=== PATIENT | female | born 2000 | race Caucasian/White ===

== ENCOUNTER → 2022-05-18 13:51 | Outpatient (CLI) | payer OTHER, MEDICAID, SELFPAY ==
--- NOTE | 2022-05-18 | DI.US.S_ITS ---
PROCEDURE: US OB >= 14 WEEKS FETUS INDICATIONS: ANATOMY SCAN OUTSIDE/PRIOR DATING DATA: Last menstrual period (LMP): 12/22/2021. LMP-based estimated date of delivery (LESLIE): 09/28/2022. First dating scan (date and location): 05/18/2022. Estimated date of delivery (LESLIE) from first dating scan: 09/27/2022. TECHNIQUE: Real-time scanning was performed of the fetus, with image documentation and biometric measurements. Endovaginal scanning: Not performed. COMPARISON: None. FINDINGS: General: A single living intrauterine gestation is present. Presentation: Variable, breech at the end of the exam. Placenta: Placental position is fundal , without previa. Amniotic fluid index: 11.1 cm, normal range is 5-24 cm. Single deepest vertical pocket is 3.6 cm. heart rate: 155 beats per minute. Maternal cervical canal: 3.9 cm long. Normal lower limit is 2.5 cm. biometrics: Biparietal diameter: 5.0 cm, 21 weeks 1 day Head circumference: 18.8 cm, 21 weeks 1 day Abdominal circumference: 16.0 cm, 21 weeks 1 day Femur length: 3.5 cm, 21 weeks 1 day Clinically estimated gestational age: 21 weeks 0 days Composite gestational age from present scan: 21 weeks 1 day Estimated weight and percentile: 403 g, 53rd percentile Anatomic survey: Neuro: Ventricles are non-dilated at less than 10 mm. Cisterna magna is normal at 3-11 mm. Cerebellum is normal in size and morphology. Nuchal skin fold: Normal at less than 6 mm between 14-21 weeks gestational age. Face: Nose and lips, facial profile are normal. Spine: No evidence for spina bifida. Heart: 4-chambered heart is present, with normal ventricular outflow tracts. Diaphragm: Diaphragm is intact. Stomach: Left-sided stomach is present. Kidneys: No hydronephrosis. Normal is less than 5 mm in 2nd trimester, less than 7 mm in 3rd trimester. Cord: 3-vessel cord has orthotopic insertion. Bladder: Normal in size. Extremities: All 4 extremities identified. IMPRESSION: 1. Single living intrauterine with gestational age of 21 weeks 0 days by LMP. 2. Normal 2nd trimester anatomy survey. No anomalies detected at this time. We strive to produce accurate, complete, and clear reports of imaging services. To assist us in improving patient care, this report was composed using standard report templates and voice recognition software. Therefore, it may contain abnormal punctuation, insertions and/or omissions. Occasional wrong-word or sound-alike substitutions may occur. Though we review the report and make efforts to correct it, we do recommend that the report be read carefully in proper context to recognize any text inaccuracies. Dictated by: Emanuel Rivas M.D. on 05/19/2022 at 8:32 Approved by: Emanuel Rivas M.D. on 05/19/2022 at 8:45
== END ==
PROVIDERS: Referring Provider Nurse Practitioner Obstetrics & Gynecology; Visit Provider Nurse Practitioner Obstetrics & Gynecology
DX: Z34.92 Encounter for supervision of normal pregnancy, unspecified, second trimester (principal); Z3A.20 20 weeks gestation of pregnancy
CPT/HCPCS: 76811

== ENCOUNTER → 2022-09-11 06:41 | Outpatient (CLI) | payer OTHER, MEDICAID, SELFPAY ==
--- NOTE | 2022-09-11 06:44 | DI.US.S_ITS ---
PROCEDURE: US OB LIMITED INDICATIONS: GROWTH SCAN OUTSIDE/PRIOR DATING DATA: Last menstrual period (LMP): 12/22/2021. LMP-based estimated date of delivery (LESLIE): 09/28/2022. First dating scan (date and location): 05/18/2022. Estimated date of delivery (LESLIE) from first dating scan: 09/27/2022. TECHNIQUE: Real-time scanning was performed of the fetus, with image documentation. Endovaginal scanning: Not performed COMPARISON: [facility], OB >= 14 WEEKS FETUS, 05/18/2022, 14:02. FINDINGS: A single living intrauterine gestation is present. Presentation: Vertex. Placenta: Placental position is left fundal, without previa. Amniotic fluid index: 17.0 cm, normal range is 5-24 cm. Single deepest vertical pocket is 4.8 cm. heart rate: 144 beats per minute. Maternal cervical canal: Not well visualized estimated gestational age: 37 weeks 5 days Estimated gestational age from biometry: 37 weeks 4 days. Biparietal diameter: 9 centimeters, 36 weeks 2 days Head circumference: 33.3 centimeters, 38 weeks 1 day Abdominal circumference: 35.2 centimeters, 39 weeks 1 day Femur length: 7.2 centimeters, 36 weeks 5 days Estimated weight 3398 grams, 71st percentile Umbilical cord Doppler performed, S/D ratios of 2.23, 2.33, 2.53, within normal limits. IMPRESSION: Single living intrauterine in vertex presentation. growth is within normal limits with estimated weight at the 71st percentile. Dictated by: Emanuel Rivas M.D. on 09/11/2022 at 9:36 Approved by: Emanuel Rivas M.D. on 09/11/2022 at 9:52
== END ==
PROVIDERS: Referring Provider Nurse Practitioner Obstetrics & Gynecology; Visit Provider Nurse Practitioner Obstetrics & Gynecology
DX: O26.843 Uterine size-date discrepancy, third trimester (principal); Z3A.37 37 weeks gestation of pregnancy
CPT/HCPCS: 76815; 76820; 93976

== ENCOUNTER 2022-09-15 22:36 | Inpatient (IN) | payer OTHER, MEDICAID, SELFPAY ==
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
[2022-09-15 23:20] LABS: Appearance Urine UA CLEAR; Bilirubin Urine UA NEGATIVE (NEGATIVE); Color Urine UA YELLOW; Glucose Urine UA NEGATIVE (Negative); Ketones Urine UA 1+ (NEGATIVE); Leukocyte Esterase Urine UA TRACE (NEGATIVE); Nitrite Urine UA NEGATIVE (Negative); Occult Blood Urine UA 2+ (Negative); Protein Urine UA TRACE (Negative); Urobilinogen Urine UA 0.2 E.U./dL (0.2)
[2022-09-15 23:30] LABS: pH Urine UA 6.5 (4.5-8.0)
[2022-09-15 23:35] LABS: Add Manual Diff / Slide Review NO; Basophils Absolute Auto 0 /uL (0-100); Basophils Percent Auto 0.5 % (0-2); Eosinophils Absolute Auto 0 /uL (0-450); Eosinophils Percent Auto 0.1 % (2-4); Hematocrit 31.2 % (36-46); Hemoglobin 10.3 g/dL (12.0-16.0); Lymphocytes Absolute Auto 2800 /uL (1100-4500); Lymphocytes Percent Auto 38.3 % (25-40); Mean Corpuscular HGB Conc 33.1 % (30-36); Mean Corpuscular Hemoglobin 28.5 PG (26-34); Monocytes Absolute Auto 500 /uL (0-900); Monocytes Percent Auto 7.2 % (3-14); Neutrophils Absolute Auto 3900 /uL (1500-7000); Neutrophils Percent Auto 53.9 % (50-75); Platelet Count 196 X10^3/uL (150-400); Red Blood Cell Count 3.62 X10^6/uL (4.0-5.2); Red Cell Distribution Width 13.1 % (11.6-14.8); White Blood Cell Count 7.3 X10^3/uL (4.5-11.0)
[2022-09-15] MEDS: LACTATED RINGERS 1,000 ML 100 ML IV (23:59)
[2022-09-15] MEDS: FENT 2MCG/ML BUPIV 0.125% EPI 200 MCG/100 ML PLAST..BAG 6 MCG EPIDURAL (23:59)
[2022-09-16 00:06] LABS: UR Morphine/Opiate cutoff 300 Negative (Negative); Ur Creatinine 20 (Normal); Urine Amphetamines Negative (Negative); Urine Barbiturates Negative (Negative); Urine Benzodiazepines Negative (Negative); Urine Cocaine Negative (Negative); Urine MDMA Negative (Negative); Urine Methadone Negative (Negative); Urine Methamphetamines Negative (Negative); Urine Oxycodone Negative (Negative); Urine Phencyclidine Negative (Negative); Urine Tetrahydrocannabinol Negative (Negative); Urine Tricyclic Antidepressant Negative (Negative); Urine pH 6.5 (Normal)
[2022-09-16 00:42] LABS: Bacteria Urine Occasional (0-1); Culture Indicated Urine Specimen Cultured; RBC Urine 1-5/HPF (0-5/HPF); WBC Urine 0-1/HPF (0-5/HPF)
[2022-09-16 01:04] LABS: COVID19 -Nasal RAPID Negative (Negative)
[2022-09-16] MEDS: OXYTOCIN PREMIX 30 UNIT/500 ML PLAST..BAG 200 UNIT IV (02:07)
--- NOTE | 2022-09-16 02:18 | PM.OBPRVD ---
Labor & Delivery Delivery date: 09/16/22 Intrapartal Events: None Cervical ripening method: none Induction method: none Delivery monitor: external FHT and external uterine Route of delivery: Episiotomy description: None L&D Laceration Description: None Quantitative Blood Loss: 50 Anesthesia Type: Epidural Narrative: Mary received adequate pain relief with her epidural and was found to be C/C/0 shortly after placement. During 1 hour of laboring down, FHR was Cat II for recurrent variables and prolonged decelerations that resolved with position changes. Coached pushing and strong maternal efforts led to NSVB of a viable baby girl in KAYE position, sommersaulted through a single tight nuchal cord and placed on maternal abdomen for drying, stimulation and skin to skin. After 4 minutes, 30 units of pitocin in 500mL LR was started at 250mL/hr for AMTSL. The cord was then double clamped by CNM and cut by FOB. Cord blood sample was collected. Gentle cord traction and single maternal push led to spontaneous, Schultze delivery of an apparently intact placenta, membranes and 3VC. Fundus immediately firm and bleeding minimal. Vagina and perineum inspected and intact. QBL 50mL. Both mother and baby stable and skin to skin as I left the room. Baby 1: Infant gender: Female Presentation: vertex Position: Right Occiput Anterior Placenta delivery description: Spontaneous Cord Vessel Description: 3 Vessels and Nuchal Cord score (1 min): 8 score (5 min): 9 weight: 3.439 kg Plan for aftercare: Routine care
[2022-09-16 02:24] VITALS: BP 128/81; PULSE 85; RESP 16; TEMP 36.8
[2022-09-16] MEDS: KETOROLAC 30 MG/ML VIAL IV (02:56)
[2022-09-16 09:34] LABS: TSH w/ Reflex to FT4 1.19 uIU/mL (0.47-4.68)
[2022-09-16] MEDS: DERMOPLAST SPRAY 20% 60 ML 1 SPRAY TOP (14:42)
--- NOTE | 2022-09-16 17:15 | P.PNOB_ITS ---
Subjective - OB Subjective Patient comments: no complaints [place] baby status: doing well [place] feeding status: exclusively bottle feeding Exam Vital Signs (past 8 hours): BP 109/61, HR 75bpm, RR 17/min, T 98.0 F Temporal Other: Fundus firm @ U, lochia light to moderate without clots Objective Labs Result Diagrams: 09/15/22 22:05 Labs: Laboratory Results - last 24 hr 09/15/22 09/15/22 09/15/22 22:05 22:05 23:17 WBC 7.3 RBC 3.62 L Hgb 10.3 L Hct 31.2 L MCV 86.0 MCH 28.5 MCHC 33.1 RDW 13.1 Plt Count 196 Neut % (Auto) 53.9 Lymph % (Auto) 38.3 [place] % (Auto) 7.2 Eos % (Auto) 0.1 L Baso % (Auto) 0.5 Neut # (Auto) 3900 Lymph # (Auto) 2800 [place] # (Auto) 500 Eos # (Auto) 0 Baso # (Auto) 0 TSH Urine Color Yellow Urine Appearance Clear Urine pH 6.5 Ur Specific [place] 1.010 Urine Protein Trace H Urine Glucose (UA) Negative Urine Ketones 1+ H Urine Occult Blood 2+ H Urine Nitrate Negative Urine Bilirubin Negative Urine Urobilinogen 0.2 Ur Leukocyte Esterase Trace H Urine RBC 1-5/hpf Urine WBC 0-1/hpf Urine Bacteria Occasional (0-1) Ur Culture Indicated? Specimen cultured U Opiates 300ng/mL cut Ur Oxycodone Screen Urine Methadone Screen Ur Barbiturates Screen U Tricyclic Antidepress Ur Phencyclidine Scrn Ur Amphetamines Screen U Methamphetamines Scrn Ur MDMA Scrn (Ecstasy) U Benzodiazepines Scrn Urine Cocaine Screen U Marijuana (THC) Screen SARS-CoV-2 (PCR) Blood Type A Positive Antibody Screen Negative 09/15/22 09/16/22 09/16/22 23:57 00:25 08:24 WBC RBC Hgb Hct MCV MCH MCHC RDW Plt Count Neut % (Auto) Lymph % (Auto) [place] % (Auto) Eos % (Auto) Baso % (Auto) Neut # (Auto) Lymph # (Auto) [place] # (Auto) Eos # (Auto) Baso # (Auto) TSH 1.19 Urine Color Urine Appearance Urine pH Ur Specific [place] Urine Protein Urine Glucose (UA) Urine Ketones Urine Occult Blood Urine Nitrate Urine Bilirubin Urine Urobilinogen Ur Leukocyte Esterase Urine RBC Urine WBC Urine Bacteria Ur Culture Indicated? U Opiates 300ng/mL cut Negative Ur Oxycodone Screen Negative Urine Methadone Screen Negative Ur Barbiturates Screen Negative U Tricyclic Antidepress Negative Ur Phencyclidine Scrn Negative Ur Amphetamines Screen Negative U Methamphetamines Scrn Negative Ur MDMA Scrn (Ecstasy) Negative U Benzodiazepines Scrn Negative Urine Cocaine Screen Negative U Marijuana (THC) Screen Negative SARS-CoV-2 (PCR) Negative Blood Type Antibody Screen Assessment & Plan Assessment and Plan (1) Encounter for full-term uncomplicated delivery: Status: Acute Plan day: 1 plan OB: routine care Comments: Discharge to home in AM Time Spent With Patient Time: Total time spent is greater than 50% in coordination of care (as documented) at patient's floor/unit and/or counseling patient: Time with patient: less than 15 minutes
[2022-09-16] MEDS: ACETAMINOPHEN SUSP 650 MG/20.3 ML UDC PO (17:42)
--- NOTE | 2022-09-17 08:20 | P.DS_ITS ---
Discharge Providers Provider Date of admission: 09/15/22 22:36 Discharge Date: 09/17/22 Consults: 09/17/22 02:16 Consult to Housekeeping Staff Routine Comment: Discharge provider: Fozia Mondragon CNM Summary Hospital Course Date Patient Seen: 09/17/22 Time Patient Seen: 08:24 Diagnoses: O80 Hospital Course: PPD1: stable s/p NSVB with no lacerations. Voiding and ambulating independent ly. Formula feeding her baby confidently and is happy with this decision. Tolerating a general diet. Minimal pain, well tolerated without mediation. Vaginal bleeding is like a period, no clots. Eager for discharge to home. Partner is present and supportive. Peripartum Data Infant Delivery Method: Natural Vaginal Laceration Description: None Episiotomy description: None Procedures: O80 complications: none 1: Gender: Female Disposition of : home Discharge Diagnosis (1) Encounter for full-term uncomplicated delivery: Start Date: 09/16/22 Start Time: 02:02 Status: Acute Problem Details: Routine course Status at Discharge Cognitive/behavioral status at discharge: oriented and calm Functional status at discharge: independent ambulation Overall status at discharge: patient is progressing back to baseline Time Spent with Patient Time attestation: Total time spent providing and/or coordinating discharge services: Time spent: Less than 30 minutes Specific discharge activities: teaching Objective Labs Result Diagrams: 09/15/22 22:05 Labs: Laboratory Results - last 24 hr 09/16/22 08:24 TSH 1.19 Exam Vital Signs (past 8 hours): BP 112/70, HR 57bpm, RR 16/min, T 98.3F Temporal Other: Fundus firm @ U-1, lochia scant. Perineum intact. Discharge Plan Discharge Plan Patient Disposition: Home Discharge orders & Medications Prescriptions: No Action No Known Home Medications Follow up/Referrals: Fozia Mondragon CNM [[facility] [employer] [employer] [facility] [employer] [facility]] - (Follow-up Wednesday09/30/22 @ 1200 by phone call Follow-up Wednesday10/27/22 @ 0945 in office) Diet/Activity/Treatments Diet: Diet as Tolerated and Regular Activity: pelvic rest x 6 week, avoid lifting >20lbs for 4 weeks Skin/Wound/Dressing Care Report to your healthcare provider any signs of infection, such as:: chills, fever, increased pain, unusual drainage and unusual redness Visit Report/Discharge Packet Instructions: DI for Depression
[2022-09-17 09:13] VITALS: BP 128/81; PULSE 85; RESP 16; TEMP 36.8
== END 2022-09-17 13:00 | disposition home or self-care (01) | DRG 560 ==
PROVIDERS: Admitting Provider Nurse Practitioner Obstetrics & Gynecology; Referring Provider Nurse Practitioner Obstetrics & Gynecology; Visit Provider Nurse Practitioner Obstetrics & Gynecology
DX: O99.02 Anemia complicating childbirth (principal); Z37.0 Single live birth; O76 Abnormality in fetal heart rate and rhythm complicating labor and delivery; Z3A.38 38 weeks gestation of pregnancy; Z20.822 Contact with and (suspected) exposure to COVID-19
CPT/HCPCS: 36415; 59050; 80305; 81003; 81015; 84443; 85025; 86850; 86900; 86901; 87086; 87635; C9803; G0379; J1885; J2590